=== PATIENT | female | born 1935 | race Caucasian/White ===

== ENCOUNTER 2016-09-17 13:38 | Emergency (ER) | payer MEDICARE ==
[2014-10-07 07:34] VITALS: BMI 44.6
[~2016-09-17 13:38] MED LIST: ELAVIL25 MG PO; HYDROCODONE-APA1 TAB PO; LISINOPRIL10 MG PO
[2016-09-17 15:07] LABS: BASOPHILS 0.7 % (0-2); EOSINOPHILS 3.1 % (0-7); HEMATOCRIT 47.4 % (36.0-48.0); HEMOGLOBIN 15.9 g/dL (12-16); IMMATURE GRANULOCYTES 0.2 % (0-5); MCH 30.7 pg (26.0-34.0); MCHC 33.5 g/dL (31.0-37.0); MCV 91.5 fL (80.0-100.0); MEAN PLATELET VOLUME 10.5 fL (7.4-10.4); PLATELET COUNT 231 10x3/uL (130-400); RBC 5.18 10x6/uL (4.00-5.40); RDW 13.7 % (11.5-14.5); WBC 8.4 10x3/uL (4.8-10.8)
[2016-09-17 15:33] LABS: ALBUMIN 3.3 g/dL (3.4-5.0); ANION GAP 13.1 mmol/L (8-16); BILIRUBIN - TOTAL 0.4 mg/dL (0.2-1.3); CALCIUM 8.5 mg/dL (8.5-10.1); CARBON DIOXIDE 29.7 mmol/L (21.0-32.0); CREATININE - SERUM 0.9 mg/dL (0.6-1.3); POTASSIUM - SERUM 3.8 mmol/L (3.5-5.1); PROTEIN - SERUM 6.8 g/dL (6.4-8.2)
== END 2016-09-17 17:58 | disposition home or self-care (01) ==
LOC: D.ER 13:38
PROVIDERS: Family Medicine
DX: M79.605 Pain in left leg (principal); M54.10 Radiculopathy, site unspecified; M54.30 Sciatica, unspecified side; I10 Essential (primary) hypertension

== ENCOUNTER 2018-08-04 20:11 | Inpatient (IN) | payer MEDICARE ==
[~2018-08-04] VITALS: Ht 170.2 cm; Wt 125.6 kg
--- NOTE | ~2018-08-04 | EC ---
PATIENT:FRANCISCO HEARN DATE OF SERVICE: 08/04/18 SEX: F MEDICAL RECORD: [id number] DATE OF : 33 LOCATION:D.MS [place] AGE OF PATIENT: 82 ADMISSION DATE: 08/04/18 REFERRING PHYSICIAN: INTERPRETING PHYSICIAN: AJ WANG MD ECHOCARDIOGRAM REPORT ECHO CHARGES 4 ECHO COMPLETE Date: 08/05/18 CLINICAL DIAGNOSIS: AFIB ECHOCARDIOGRAPHIC MEASUREMENTS (adult normal given) AC root (d.<3.7cm) 2.9 cm LV Septum d (<1.2 cm> 0.9 cm Valve Excursion 1.7 cm LV Septum (systole) 1.6 cm Left Atria (s.<4.0cm> 4.4 cm LVPW d(<1.2cm) 1.3 cm RV (d.<2.3cm) 1.8 cm LVPW (sytole) 1.6 cm LV diastole(<5.6CM) 5.5 cm MV E-F(>70mm/sec) cm LV systole 4.5 cm LVOT Diameter 1.7 cm MV exc.(>10mm) cm Est.ejection fraction (50-75%) % DOPPLER: LVIT cm/sec A 26 cm/sec E 96 cm/sec LA cm/sec RVSP 22.0 mmHg LVOT 123 cm/sec AOP1/2T m/s Asc. Ao 156 cm/sec RVOT 133 cm/sec RA cm/sec PA 163 cm/sec AV Gradient Peak 9.7 mmHg AV Mean 5.0 mmHg AV Area 2.0 cm MV Gradient Peak 3.8 mmHg MV Mean 2.0 mmHg MV Area cm COMMENTS: Custom Van Converter: Devendra [facility] Photography Coordinator: 1 Dr. Wang TAPE# PACS Pericardial Effusion N DATE OF SERVICE: 08/05/2018 FINDINGS: 1. Left ventricular chamber size is within normal limits. Left ventricular systolic function is normal. Overall ejection fraction 65%. 2. Left atrium is enlarged at 4.4 cm. Right atrium and right ventricular chamber sizes are as well mildly dilated. 3. Valvular structures have normal structure and motion. 4. Doppler interrogation reveals moderate aortic insufficiency, [id number] tricuspid regurgitation, no other valvular insufficiency or stenosis. Pulmonary ECHOCARDIOGRAM REPORT [id number] FRANCISCO HEARN systolic pressure is preserved at 22 mmHg. 5. No evidence of pericardial effusion or left ventricular thrombus. TRANSINT:[id number] Voice Confirmation ID: [id number] DOCUMENT ID: [id number] AJ WANG MD CC: [id number] DICTATION DATE: 08/06/18 1019 SHIP'S OFFICER: 08/06/[address] [facility] [address] [place] [id number]
--- NOTE | ~2018-08-04 | CN ---
PATIENT NAME:FRANCISCO HEARN MEDICAL RECORD: [id number] : 33 LOCATION:D.MS Toth2207 ADMIT DATE: 08/04/18 ACCOUNT: [id number] CONSULTING PHYSICIAN: AJ GARCIA MD REFERRING PHYSICIAN: TYLER JONES MD DATE OF CONSULTATION: 08/05/2018 CARDIOLOGY CONSULTATION DATE OF SERVICE: 08/05/2018 DIAGNOSES: 1. Preoperative evaluation of hip surgery. 2. Coumadin anticoagulation, chronic. 3. Atrial fibrillation, chronic. 4. Hypertension. 5. Coronary artery disease. HISTORY OF PRESENT ILLNESS: Mrs. Hearn is admitted with a hip fracture. She has chronic atrial fibrillation for which she is on Coumadin anticoagulation. Her INR this morning is 1.78. Her Coumadin is on hold for possible operation. She is asymptomatic from the atrial fibrillation. She is not on any AV blocking medications. Her heart rate is in the 70s-80s with no AV blocking medication. She does have hypertension for which she is on lisinopril. She had a cardiac catheterization in 2011 showing minimal coronary disease. She is asymptomatic from the standpoint of ischemic heart disease with no symptomatology. PHYSICAL EXAMINATION: GENERAL APPEARANCE: Well-nourished, well-developed, appears stated age. Level of distress, comfortable. PSYCHIATRIC: Mental status, alert, normal affect. Orientation, oriented to time, place and person. EYES: Lids and conjunctiva, noninjected. No discharge, no pallor. ENT: Lips, teeth, gums, normal dentition. Oropharynx, no cyanosis, no pallor. NECK: Carotid arteries, bilateral normal upstroke, no bruits, no thrills. JUGULAR VEINS: No jugular venous pressure or distention. CERVICAL LYMPH NODES: Nontender, nonenlarged. THYROID: Not enlarged. Nontender. No nodules. LUNGS: Respiratory effort, unlabored. CHEST: Normal curvature. No thoracic deformity. No chest wall tenderness. Percussion, resonant. Auscultation, clear. No wheezes, no rales, no rhonchi. CARDIOVASCULAR: Precordial exam, nondisplaced. No heaves or pericardial thrills. Rate and rhythm, regular. Heart sounds, normal S1, normal S2. No S3, no gallop, no rub. Systolic murmur, not heard. Diastolic murmur, not heard. EXTREMITIES: No cyanosis, no edema. Peripheral pulses, full and equal in all extremities, except as noted. No bruits appreciated. ABDOMEN: Soft, nondistended. Normal aorta. No bruit. Nontender. No masses. Liver, nontender, no hepatomegaly. Spleen, nontender, no splenomegaly. MUSCULOSKELETAL: No joint tenderness. No joint swelling. No erythema. NEUROLOGICAL: Normal gait, normal strength, normal tone. SKIN: Warm and dry. OVERALL IMPRESSION: Atrial fibrillation, chronic. At this time, hold the Coumadin, proceed with the operation at low cardiac risk restarting the Coumadin as soon as possible from a bleeding standpoint after the operative repair. At CONSULT REPORT [id number] FRANCISCO HEARN this time, no other cardiac workup treatment is necessary. TRANSINT:[id number] Voice Confirmation ID: [id number] DOCUMENT ID: [id number] AJ GARCIA MD CC: [id number] DICTATION DATE: 08/05/18 1046 PURCHASE ANALYST: 08/05/[address] [facility] [address] [place] [address]
[2018-08-04] MEDS ORDERED: COUMADIN2.5 MG PO (20:17)
[2018-08-04 20:55] LABS: BASOPHILS 0.1 % (0-2); EOSINOPHILS 0 % (0-7); HEMATOCRIT 44.1 % (36.0-48.0); IMMATURE GRANULOCYTES 0.4 % (0-5); LYMPHOCYTES 3.4 % (15-50); MCH 29.8 pg (26.0-34.0); MCV 87.5 fL (80.0-100.0); MEAN PLATELET VOLUME 10.3 fL (7.4-10.4); MONOCYTES 5.5 % (2-11); NEUTROPHILS 90.6 % (40-80); RBC 5.04 10x6/uL (4.00-5.40); RDW 14.1 % (11.5-14.5); WBC 14.7 10x3/uL (4.8-10.8)
[2018-08-04 21:00] LABS: PLATELET COUNT 175 10x3/uL (130-400)
[2018-08-04 21:09] LABS: APTT 31.7 SECONDS (22.8-39.4); INR 1.79 (0.85-1.17); PROTIME 20.1 SECONDS (11.6-15.0)
[2018-08-04 21:24] LABS: BILIRUBIN - TOTAL 0.59 mg/dL (0.2-1.3); CALCIUM 8.1 mg/dL (8.5-10.1); CARBON DIOXIDE 27.4 mmol/L (21.0-32.0); CREATININE - SERUM 1.1 mg/dL (0.6-1.3); POTASSIUM - SERUM 4.4 mmol/L (3.5-5.1); PROTEIN - SERUM 6.5 g/dL (6.4-8.2); THYROID STIMULATING HORMONE 1.66 uIU/mL (0.36-3.74); TROPONIN-I 0.023 ng/mL (0.000-0.060)
[2018-08-04 22:57] VITALS: BMI 43.5
[2018-08-05 00:51] LABS: APPEARANCE CLEAR (CLEAR); BILIRUBIN NEGATIVE (NEGATIVE); COLOR DK YELLOW (YELLOW); GLUCOSE NEGATIVE (NEGATIVE); KETONE SMALL mg/dL (NEGATIVE); NITRITE NEGATIVE (NEGATIVE); PROTEIN NEGATIVE (NEGATIVE); SPECIFIC GRAVITY 1.025 (1.005-1.020); UROBILINOGEN NORMAL (NORMAL)
[2018-08-05 01:28] VITALS: BP 110/44
[2018-08-05 05:34] VITALS: BP 156/76
[2018-08-05 09:00] LABS: HEMATOCRIT 39.9 % (36.0-48.0); HEMOGLOBIN 13.4 g/dL (12-16); MCH 29.5 pg (26.0-34.0); MCHC 33.6 g/dL (31.0-37.0); MCV 87.7 fL (80.0-100.0); RBC 4.55 10x6/uL (4.00-5.40); RDW 14.5 % (11.5-14.5)
[2018-08-05 09:04] LABS: WBC 8.9 10x3/uL (4.8-10.8)
[2018-08-05 09:08] LABS: ANION GAP 14.7 mmol/L (8-16); CALCIUM 7.9 mg/dL (8.5-10.1); CARBON DIOXIDE 24.8 mmol/L (21.0-32.0); POTASSIUM - SERUM 4.5 mmol/L (3.5-5.1)
[2018-08-05 09:09] LABS: CREATININE - SERUM 0.8 mg/dL (0.6-1.3)
[2018-08-05 09:10] VITALS: BP 129/49
[2018-08-05 09:13] LABS: INR 1.78 (0.85-1.17); PROTIME 20.7 SECONDS (11.6-15.0)
[2018-08-05 13:00] VITALS: Ht 170.2 cm; Wt 125.6 kg
[2018-08-05 13:04] VITALS: BP 157/56
[2018-08-05 16:44] VITALS: BP 130/64
[2018-08-05 20:57] VITALS: BP 167/62
[2018-08-06 01:42] VITALS: BP 125/64
[2018-08-06 04:57] LABS: BASOPHILS 0.3 % (0-2); EOSINOPHILS 0.1 % (0-7); HEMATOCRIT 37.3 % (36.0-48.0); HEMOGLOBIN 12.5 g/dL (12-16); IMMATURE GRANULOCYTES 0.2 % (0-5); LYMPHOCYTES 11.2 % (15-50); MCH 29.3 pg (26.0-34.0); MCHC 33.5 g/dL (31.0-37.0); MCV 87.4 fL (80.0-100.0); MONOCYTES 11.4 % (2-11); NEUTROPHILS 76.8 % (40-80); PLATELET COUNT 235 10x3/uL (130-400); RBC 4.27 10x6/uL (4.00-5.40); RDW 14.6 % (11.5-14.5); WBC 9.6 10x3/uL (4.8-10.8)
[2018-08-06 05:08] LABS: INR 1.92 (0.85-1.17); PROTIME 21.3 SECONDS (11.6-15.0)
[2018-08-06 05:11] LABS: ANION GAP 12.8 mmol/L (8-16); CARBON DIOXIDE 25.1 mmol/L (21.0-32.0); POTASSIUM - SERUM 3.9 mmol/L (3.5-5.1)
[2018-08-06 05:24] VITALS: BP 153/63
[2018-08-06 08:56] VITALS: BP 135/61
--- NOTE | 2018-08-06 11:50 | MORECARE ---
CASE MANAGEMENT DISCHARGE SUMMARY PATIENT: FRANCISCO HEARN UNIT: [id number] ADM DATE: 08/04/18 AGE: 82 : 34 SEX: F ROOM/BED: D.2207 AUTHOR: LUIS ANDERSON PHYSICIAN: REFERRING PHYSICIAN: TYLER JONES MD DATE OF SERVICE: 08/06/18 Discharge Plan Patient Name: FRANCISCO HEARN [facility] [facility] 1935 Planned Disposition: Alf Facility Anticipated Discharge Date: Discharge Date: Expected LOS: Initial Reviewer: [email or web address] Initial Review Date: 08/04/2018 Generated: 08/06/18 12:50 pm Patient Name: FRANCISCO HEARN Page 52828 at 1150 All edits/amendments must be made on the electronic document DICTATION DATE: 08/06/18 1150 NURSERY TECHNICIAN: MICA 08/06/18 1150 RPT#: [id number] ME DATE: STATUS: ADM IN [facility] [address] [place] [address] END OF REPORT
--- NOTE | 2018-08-06 12:00 | MORECARE ---
CASE MANAGEMENT DISCHARGE SUMMARY PATIENT: FRANCISCO HEARN UNIT: [id number] ADM DATE: 08/04/18 AGE: 82 : 34 SEX: F ROOM/BED: D.2207 AUTHOR: LUIS ANDERSON PHYSICIAN: REFERRING PHYSICIAN: TYLER JONES MD DATE OF SERVICE: 08/06/18 Discharge Plan Patient Name: FRANCISCO HEARN [facility] : 1935 Planned Disposition: Residential Facility Anticipated Discharge Date: Discharge Date: Expected LOS: Initial Reviewer: [email or web address] Initial Review Date: 08/04/2018 Generated: 08/06/18 12:59 pm DCPIA - Discharge Planning Initial Assessment Updated by [email or web address]: Maricruz Peña on 08/06/18 11:52 am * Is the patient Alert and Oriented? Yes * How many steps to enter\exit or inside your home? * PCP TAQUERIA/RADHA * [facility] * Preadmission Environment Home Alone * ADLs Independent * Equipment Bedside Commode Rolling Walker Shower Chair Walker Wheelchair * List name and contact numbers for known caregivers / representatives who currently or will assist patient after discharge: YVON (DAUGHTER IN LAW) [phone] * Verbal permission to speak to the caregivers and representatives has been obtained from the patient. Yes * Community resources currently utilized None * Additional services required to return to the preadmission environment? Yes * Can the patient safely return to the preadmission environment? No * Has this patient been hospitalized within the prior 30 days at any hospital? No Last DP export: 08/06/18 10:50 a Patient Name: FRANCISCO HEARN Page 39609 at 1200 All edits/amendments must be made on the electronic document DICTATION DATE: 08/06/18 1159 CAN STERILIZER: MICA 08/06/18 1159 RPT#: [id number] DC DATE: STATUS: ADM IN [facility] [address] [place] [address] END OF REPORT
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
[2018-08-06 17:25] VITALS: BP 173/61
[2018-08-06 20:00] VITALS: BP 151/59
[2018-08-07] VITALS (13 sets, daily range): BP systolic 129–178; BP diastolic 49–81
[2018-08-07 05:04] LABS: BASOPHILS 0.6 % (0-2); EOSINOPHILS 1.2 % (0-7); HEMATOCRIT 35.8 % (36.0-48.0); HEMOGLOBIN 11.9 g/dL (12-16); IMMATURE GRANULOCYTES 0.4 % (0-5); LYMPHOCYTES 11.4 % (15-50); MCH 29.2 pg (26.0-34.0); MCHC 33.2 g/dL (31.0-37.0); MCV 87.7 fL (80.0-100.0); MEAN PLATELET VOLUME 9.6 fL (7.4-10.4); MONOCYTES 7.8 % (2-11); NEUTROPHILS 78.6 % (40-80); PLATELET COUNT 207 10x3/uL (130-400); RBC 4.08 10x6/uL (4.00-5.40); RDW 14.4 % (11.5-14.5); WBC 8.1 10x3/uL (4.8-10.8)
[2018-08-07 05:20] LABS: INR 1.85 (0.85-1.17); PROTIME 20.7 SECONDS (11.6-15.0)
[2018-08-07 05:30] LABS: ANION GAP 10.4 mmol/L (8-16); CALCIUM 7.9 mg/dL (8.5-10.1); CARBON DIOXIDE 27.5 mmol/L (21.0-32.0); CREATININE - SERUM 0.8 mg/dL (0.6-1.3); POTASSIUM - SERUM 3.9 mmol/L (3.5-5.1)
[2018-08-07 22:52] LABS: INR 1.58 (0.85-1.17); PROTIME 18.2 SECONDS (11.6-15.0)
[2018-08-08] VITALS (8 sets, daily range): BP systolic 125–171; BP diastolic 41–79
[2018-08-08 06:35] LABS: BASOPHILS 0.2 % (0-2); EOSINOPHILS 0.3 % (0-7); HEMATOCRIT 35.5 % (36.0-48.0); HEMOGLOBIN 11.6 g/dL (12-16); IMMATURE GRANULOCYTES 0.3 % (0-5); MCHC 32.7 g/dL (31.0-37.0); MCV 88.8 fL (80.0-100.0); MEAN PLATELET VOLUME 10.1 fL (7.4-10.4); MONOCYTES 9.8 % (2-11); NEUTROPHILS 81.4 % (40-80); RDW 14.5 % (11.5-14.5); WBC 8.7 10x3/uL (4.8-10.8)
[2018-08-08 06:42] LABS: PLATELET COUNT 252 10x3/uL (130-400)
[2018-08-08 06:45] LABS: INR 1.5 (0.85-1.17); PROTIME 17.6 SECONDS (11.6-15.0)
[2018-08-08 06:51] LABS: ANION GAP 12.9 mmol/L (8-16); CALCIUM 7.4 mg/dL (8.5-10.1); CARBON DIOXIDE 26.2 mmol/L (21.0-32.0); CREATININE - SERUM 0.8 mg/dL (0.6-1.3); POTASSIUM - SERUM 4.1 mmol/L (3.5-5.1)
[2018-08-09] VITALS: BP 156/68
[2018-08-09 04:00] VITALS: BP 137/56
[2018-08-09 07:16] LABS: BASOPHILS 0.4 % (0-2); EOSINOPHILS 2.7 % (0-7); HEMATOCRIT 34.5 % (36.0-48.0); HEMOGLOBIN 11.5 g/dL (12-16); IMMATURE GRANULOCYTES 0.6 % (0-5); LYMPHOCYTES 11.9 % (15-50); MCH 29.4 pg (26.0-34.0); MCHC 33.3 g/dL (31.0-37.0); MCV 88.2 fL (80.0-100.0); MEAN PLATELET VOLUME 9.9 fL (7.4-10.4); MONOCYTES 13.8 % (2-11); NEUTROPHILS 70.6 % (40-80); PLATELET COUNT 251 10x3/uL (130-400); RBC 3.91 10x6/uL (4.00-5.40); RDW 14.6 % (11.5-14.5); WBC 8.1 10x3/uL (4.8-10.8)
[2018-08-09 07:36] LABS: CALC OSMOLALITY 278 mosm/kg (275-300); CALCIUM 7.9 mg/dL (8.5-10.1); CARBON DIOXIDE 26.2 mmol/L (21.0-32.0); CHLORIDE - SERUM 102 mmol/L (98-107); CREATININE - SERUM 0.7 mg/dL (0.6-1.3); GLUCOSE 112 mg/dL (74-106); POTASSIUM - SERUM 4.2 mmol/L (3.5-5.1); SODIUM 138 mmol/L (136-145); UREA NITROGEN 17 mg/dL (7-18); eGFR NON AFRICAN AMERICAN 84 mL/min (90-120)
[2018-08-09 08:35] VITALS: BP 141/75
--- NOTE | 2018-08-09 09:41 | OP ---
PATIENT NAME: FRANCISCO HEARN MEDICAL RECORD: [id number] :33 LOCATION:D.MS Toth2207 ADMISSION DATE:08/04/18 SURGEON: RERE DOWNS MD DATE OF OPERATION: 08/07/2018 PREOPERATIVE DIAGNOSES: 1. Subtrochanteric right hip fracture. 2. Morbid obesity. POSTOPERATIVE DIAGNOSES: 1. Subtrochanteric right hip fracture. 2. Morbid obesity. PROCEDURE: Cephalomedullary fixation of right subtrochanteric hip fracture. SURGEON: Rere Downs MD MOLD LOFT WORKER: Bruna Norman. ANESTHESIA: General. INTRAOPERATIVE COMPLICATIONS: Essentially none. SUMMARY OF PATHOLOGIC FINDINGS: The patient had a fracture that was in the subtrochanteric region. Given the patient's weight, this made fixation extremely difficult; however, excellent anatomic muslim of the proximal subtrochanteric femur fracture was achieved using gamma nail system. OPERATIVE SUMMARY IN DETAIL: After obtaining the appropriate preoperative orthopedic surgery consent as well as anesthetic consultation, evaluation and clearance, the patient was brought to the operating room and anesthetized on her hospital bed. She was then transferred to the fracture table. She was firmly secured to the fracture table, given her weight of near 300 pounds. This required substantial amount of positioning and preparation. Right leg was placed in the traction boot, left leg was placed in the well leg ngo. Having completed this, fluoroscopy was brought in and manipulation was performed for anatomic muslim, both in rotation as well as alignment. This did require substantial amount of abduction, putting the greater trochanter farther medially. Hip was then prepped and draped in routine sterile fashion. Incision was made superior to greater trochanter. The awl was then utilized to create a starting point, and with some degree of trepidation the guidewire was passed through the greater trochanter, into the subtrochanteric fracture and down the femur, both on AP and lateral planes. Proximal reaming was then followed by insertion of a long gamma nail, which was a size 11 x 300 mm with a 125 degree angulation. The gamma nail was placed with a combination of abduction and adduction of the lower extremity to the appropriate position. Guide pin was then put into place and seemed to be in the center-center low position on AP and lateral views from fluoroscopy. Reaming was carried out followed by placement of the 10.5 x 110-mm compression screw. Derotational screw was deployed to the appropriate place to allow for compression, but not rotation. Compression was then applied across the fracture. Lastly, attention was turned to the distal interlocking screw. Distal interlocking screw was aligned on fluoroscopic visualization and then the distal interlocking screw for a size 40 was placed resulting in good overall stabilization. AP and lateral views of both proximal and distal aspect of the fracture were taken and submitted for radiologist for OPERATIVE REPORT [id number] FRANCISCO HEARN final review. Wounds were irrigated and closed done by Bruna Norman, to include #1 Vicryl, 2-0 Vicryl and skin vanita. Sterile dressings were applied. The patient was awakened, taken to the recovery room in stable condition. All final needle and sponge counts were correct. TRANSINT:[id number] Voice Confirmation ID: [id number] DOCUMENT ID: [id number] YARELI GRAY, RERE JAIMES at 0941 CC: [id number] DICTATION DATE: 08/08/18617 PARIMUTUEL CASHIER: 08/08/18 1210 ADM IN [place] [id number] [place] [id number]
[2018-08-09 12:48] VITALS: BP 190/64
[2018-08-09 16:47] VITALS: BP 113/66
[2018-08-09 20:00] VITALS: BP 148/55
[2018-08-10] VITALS: BP 159/66
[2018-08-10 04:00] VITALS: BP 154/61
[2018-08-10 07:26] LABS: CALC OSMOLALITY 274 mosm/kg (275-300); CALCIUM 7.7 mg/dL (8.5-10.1); CARBON DIOXIDE 26.5 mmol/L (21.0-32.0); CHLORIDE - SERUM 101 mmol/L (98-107); CREATININE - SERUM 0.7 mg/dL (0.6-1.3); GLUCOSE 103 mg/dL (74-106); POTASSIUM - SERUM 4.4 mmol/L (3.5-5.1); SODIUM 137 mmol/L (136-145); UREA NITROGEN 15 mg/dL (7-18); eGFR NON AFRICAN AMERICAN 84 mL/min (90-120)
[2018-08-10 07:27] LABS: BASOPHILS 0.2 % (0-2); EOSINOPHILS 4.1 % (0-7); HEMATOCRIT 33.4 % (36.0-48.0); HEMOGLOBIN 11.2 g/dL (12-16); IMMATURE GRANULOCYTES 0.4 % (0-5); LYMPHOCYTES 15.2 % (15-50); MCH 29.5 pg (26.0-34.0); MCHC 33.5 g/dL (31.0-37.0); MCV 87.9 fL (80.0-100.0); MONOCYTES 12.7 % (2-11); NEUTROPHILS 67.4 % (40-80); PLATELET COUNT 250 10x3/uL (130-400); RDW 14.6 % (11.5-14.5)
[2018-08-10 09:05] VITALS: BP 143/64
[2018-08-10 13:10] VITALS: BP 115/47
[2018-08-10] MEDS ORDERED: ELIQUIS2.5 MG PO (16:25)
[2018-08-10] MEDS ORDERED: COLACE100 MG PO (16:26)
[2018-08-10] MEDS ORDERED: MIRALAX17 GM PO (16:26)
[2018-08-10] MEDS ORDERED: PROTONIX40 MG PO (16:26)
[2018-08-10] MEDS ORDERED: NORCO-10 PO (16:26)
[2018-08-10] MEDS ORDERED: CYCLOBENZAPRINE10 MG PO (16:27)
[2018-08-10 16:34] VITALS: BP 126/45
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
== END 2018-08-10 18:20 | DRG 480 ==
LOC: D.ER 20:11 → D.MS 20:53
PROVIDERS: Family Medicine; Orthopaedic Surgery; ADMIT Internal Medicine Nephrology; ATTEND Internal Medicine Nephrology
PROC: 0QH604Z Insertion of Internal Fixation Device into Right Upper Femur, Open Approach (ICD-10-PCS; principal; 2018-08-07 16:00)
DX: S72.001A Fracture of unspecified part of neck of right femur, initial encounter for closed fracture (principal); G92 Toxic encephalopathy; F17.213 Nicotine dependence, cigarettes, with withdrawal; I10 Essential (primary) hypertension; I48.91 Unspecified atrial fibrillation

== ENCOUNTER 2018-08-10 17:47 | Inpatient (IN) | payer MEDICARE ==
[~2018-08-10] VITALS: Ht 170.2 cm; Wt 125.6 kg
[~2018-08-10 17:47] MED LIST changes: +COLACE100 MG PO; +COUMADIN2.5 MG PO; +CYCLOBENZAPRINE10 MG PO; +ELIQUIS2.5 MG PO; +MIRALAX17 GM PO; +NORCO-10 PO; +PROTONIX40 MG PO
[2018-08-10 18:12] VITALS: BP 139/51; BMI 43.5
--- NOTE | 2018-08-10 21:18 | NUR ---
PATIENT ASLEEP WHEN SHIFT STARTED. AWAKENED FOR VITAL SIGNS AND INTRODUCED MYSELF. PATIENT ALERT BUT DISORIENTED TO TIME. 21:00 MEDICATION NOT IN PIXIS. STUDENT AMBASSADOR CALLED AND WILL COME AND GET MEDICATIONS WHEN SHE IS ABLE. PATIENT HAD NO COMPALINTS. WILL CONTINUE TO MONITOR. CALL LIGHT WITHIN REACH.
[2018-08-10 21:40] VITALS: BP 151/52
--- NOTE | 2018-08-10 22:39 | NUR ---
UA COLLECTED AND TAKEN TO LAB.
[2018-08-10 22:56] LABS: APPEARANCE HAZY (CLEAR); BILIRUBIN NEGATIVE (NEGATIVE); COLOR DK YELLOW (YELLOW); GLUCOSE NEGATIVE (NEGATIVE); KETONE NEGATIVE (NEGATIVE); NITRITE NEGATIVE (NEGATIVE); PROTEIN NEGATIVE (NEGATIVE)
[2018-08-10 22:57] LABS: BACTERIA MODERATE /hpf (NONE SEEN); EPITHELIAL CELLS OCC /hpf (0-5)
[2018-08-11 08:00] VITALS: BP 155/41
--- NOTE | 2018-08-11 08:00 | NUR ---
PT AM MEDS ADMINISTERED. PT DENIES NEEDS. WCTM.
[2018-08-11 08:23] LABS: BASOPHILS 0.2 % (0-2); EOSINOPHILS 2.9 % (0-7); HEMATOCRIT 32.3 % (36.0-48.0); HEMOGLOBIN 10.9 g/dL (12-16); IMMATURE GRANULOCYTES 0.7 % (0-5); LYMPHOCYTES 11.7 % (15-50); MCH 29.4 pg (26.0-34.0); MCHC 33.7 g/dL (31.0-37.0); MCV 87.1 fL (80.0-100.0); MEAN PLATELET VOLUME 9.4 fL (7.4-10.4); MONOCYTES 9.5 % (2-11); PLATELET COUNT 254 10x3/uL (130-400); RBC 3.71 10x6/uL (4.00-5.40); RDW 14.6 % (11.5-14.5); WBC 8.7 10x3/uL (4.8-10.8)
[2018-08-11 08:26] LABS: CALC OSMOLALITY 270 mosm/kg (275-300); CALCIUM 7.8 mg/dL (8.5-10.1); CARBON DIOXIDE 28.5 mmol/L (21.0-32.0); CHLORIDE - SERUM 100 mmol/L (98-107); CREATININE - SERUM 0.7 mg/dL (0.6-1.3); GLUCOSE 138 mg/dL (74-106); POTASSIUM - SERUM 4.4 mmol/L (3.5-5.1); SODIUM 134 mmol/L (136-145); UREA NITROGEN 14 mg/dL (7-18); eGFR NON AFRICAN AMERICAN 84 mL/min (90-120)
[2018-08-11 19:00] VITALS: BP 125/55
--- NOTE | 2018-08-11 20:07 | NUR ---
RESTING IN BED WITH EYES CLOSED AND RESPIRATIONS UNLABORED. DRESSING TO RIGHT HIP INTACT. NO ACUTE DISTRESS NOTED. CALL LIGHT IN REACH.
--- NOTE | 2018-08-12 02:12 | NUR ---
RESTING IN BED WITH EYES CLOSED AND RESPIRATIONS UNLABORED. NO DISTRESS NOTED. CALL LIGHT IN REACH.
--- NOTE | 2018-08-12 05:25 | NUR ---
QUIET HOURS. RESTING IN BED. NO ACUTE CHANGES IN CONDITION THIS SHIFT. NO DISTRESS NOTED.
--- NOTE | 2018-08-12 07:19 | NUR ---
RESTING, NO DISTRESS NOTED. RESP EVEN AND UNLABORED. CL IN REACH.
[2018-08-12 08:00] VITALS: BP 133/42
[2018-08-12 12:19] VITALS: Ht 170.2 cm; Wt 125.6 kg
--- NOTE | 2018-08-12 13:35 | NUR ---
PATIENT ADMITTED TO REHAB FROM ACUTE FLOOR. DR. MENG IS HER PCP AND SHE ALSO SEES DR. GARCIA. DME AT HOME IS A WALKER, WHEELCHAIR, SHOWER CHAIR AND BEDSIDE COMMODE. DISCHARGE PLANS ARE FOR HER TO RETURN HOME. WILL CONTINUE TO FOLLOW WITH PATIENT.
--- NOTE | 2018-08-12 13:46 | NUR ---
PARTICIPATING IN THERAPY. NO DISTRESS NOTED.
--- NOTE | 2018-08-12 16:25 | NUR ---
RESTING WITH EYES CLOSED. RESP EVEN AND UNLABORED. NO CHANGE IN ASSESSMENT. CL IN REACH.
[2018-08-12 19:00] VITALS: BP 145/60
--- NOTE | 2018-08-12 19:57 | NUR ---
PATIENT RECEIVED SITTING UP IN BED WATCHING TV. ASSESSMENT & VITAL SIGNS DONE. PATIENT UPPER INCISIONS STAPLED & KRISTEN. BOTTOM INCISION DRESSING HAD SEROSANGUANOUS DRAINAGE. DRESSING CHANGED. PATIENT HAD NO C/O PAIN OR DISTRESS. BED LOW. CALL IGHT WITHIN REACH. WILL COTNINUE TO MONITOR.
--- NOTE | 2018-08-13 01:18 | NUR ---
PATIENT EYES CLOSED. RESPIRATIONS 18 & EVEN. BED LOW. VARMA PATENT. YELLOW URINE. ALARM ON. CALL LIGHT WITHIN REACH. WILL CONTINUE TO MONITOR.
--- NOTE | 2018-08-13 02:28 | NUR ---
RESTING IN BED WITH EYES CLOSED AND RESPIRAITONS UNLABORED. NO DISTRESS NOTED. BLADDER TRAINING IN PROGRESS. CALL LIGHT IN REACH.
--- NOTE | 2018-08-13 03:54 | NUR ---
PATIENT EYES CLOSED. RESPIRATIONS 18 & EVEN. ALARM ON. BED LOW. CALL LIGHT WITHIN REACH. WILL CONTINUE TO MONITOR.
--- NOTE | 2018-08-13 07:15 | NUR ---
RESTING WO DISTRESS. RESP EVEN AND UNLABORED. NO C/O PAIN. CL IN REACH.
[2018-08-13 08:00] VITALS: BP 129/69
[2018-08-13 08:04] LABS: BASOPHILS 0.3 % (0-2); EOSINOPHILS 3.7 % (0-7); HEMATOCRIT 32.9 % (36.0-48.0); HEMOGLOBIN 10.9 g/dL (12-16); IMMATURE GRANULOCYTES 0.8 % (0-5); LYMPHOCYTES 15.1 % (15-50); MCH 28.9 pg (26.0-34.0); MCHC 33.1 g/dL (31.0-37.0); MCV 87.3 fL (80.0-100.0); MEAN PLATELET VOLUME 9.5 fL (7.4-10.4); MONOCYTES 10.4 % (2-11); NEUTROPHILS 69.7 % (40-80); PLATELET COUNT 289 10x3/uL (130-400); RBC 3.77 10x6/uL (4.00-5.40); RDW 15.2 % (11.5-14.5); WBC 7.8 10x3/uL (4.8-10.8)
[2018-08-13 08:12] LABS: CALC OSMOLALITY 270 mosm/kg (275-300); CALCIUM 8.2 mg/dL (8.5-10.1); CARBON DIOXIDE 27.2 mmol/L (21.0-32.0); CHLORIDE - SERUM 100 mmol/L (98-107); CREATININE - SERUM 0.7 mg/dL (0.6-1.3); GLUCOSE 113 mg/dL (74-106); POTASSIUM - SERUM 4.4 mmol/L (3.5-5.1); SODIUM 135 mmol/L (136-145); UREA NITROGEN 13 mg/dL (7-18); eGFR NON AFRICAN AMERICAN 84 mL/min (90-120)
--- NOTE | 2018-08-13 10:34 | NUR ---
PARTICIPATED IN THERAPY THIS AM. SITTING UP IN CHAIR IN ROOM AT THIS TIME. NO C/O PAIN AT THIS TIME. CL IN REACH.
--- NOTE | 2018-08-13 13:46 | NUR ---
Nutrition follow up Pt continues with poor po intake. Will add proteinex 40mL BID to help pt meet protein needs while in rehab. This will provide an additional 40gm protein daily RD following
--- NOTE | 2018-08-13 15:41 | NUR ---
SHOWER GIVEN AT THIS TIME PER NURSING.
--- NOTE | 2018-08-13 16:22 | NUR ---
NO CHANGE IN ASSESSMENT. REPOSITIONED UP IN BED. RESP EVEN AND UNLABORED. CL IN REACH.
[2018-08-13 19:00] VITALS: BP 116/53
--- NOTE | 2018-08-13 19:45 | NUR ---
PATIENT RECEIVED SITTING UP IN BED. ASSESSMENT & VITAL SIGNS DONE. PATIENT HAD NO C/O PAIN OLR DISTRESS. VARMA CATHETER CLAMPED OFF PER ORDER. BED LOW. CALL LIGHT & TABLE WITHIN REACH. WILL CONTINUE TO MONITOR.
--- NOTE | 2018-08-14 00:04 | NUR ---
PATIENT AWAKE, PLEASANTLY CONFUSED TO TIME, SITUATION. VARMA CATHETER CLAMPED & RELEASED PER ORDER. BED LOW. ALARM ON. CALL LIGHT WITHIN REACH. WILL CONTINUE TO MONITOR.
--- NOTE | 2018-08-14 03:05 | NUR ---
RESTING IN BED WITH EYES CLOSED AND RESPIRATIONS UNLABORED. BLADDER TRAINING IN PROGRESS. NO DISTRESS NOTED. CALL LIGHT IN REACH.
[2018-08-14 08:00] VITALS: BP 130/39
--- NOTE | 2018-08-14 08:36 | NUR ---
PT RESTING IN BED WITH EYES OPEN CALL LIGHT IN REACH NO PROBLEMS WILL MONITER
--- NOTE | 2018-08-14 18:37 | NUR ---
I have reviewed this patient and I concur with the Shift Assessment completed by the Licensed Practical Nurse today this shift.
[2018-08-14 19:30] VITALS: BP 113/47
--- NOTE | 2018-08-14 20:05 | NUR ---
GREETED PATIENT AND INTRODUCED MYSELF. PATIENT IS LAYING IN BED IN SUPINE POSITION. STATES PAIN 5/10 ON 0-10 PAIN SCALE. WILL ADMINISTER PRN NORCO. CALL LIGHT IN REACH.
--- NOTE | 2018-08-15 02:08 | NUR ---
ASSISTED PATIENT ONTO BEDPAN. CHANGED WET PADDING UNDER PATIENT AND REPOSITIONED FOR COMFORT. CALL LIGHT IN REACH.
--- NOTE | 2018-08-15 02:38 | NUR ---
PATIENT RESTING QUIETLY WITH EYES CLOSED. RESPIRATIONS EVEN. NO S/S OF DISTRESS. SR UP X 2. BED IN LOWEST POSITION. CALL LIGHT IN REACH.
--- NOTE | 2018-08-15 04:51 | NUR ---
PATIENT CLEANED OF INCONTINENT URINE. COMPLETE LINEN CHANGE. PATIENT REPOSITIONED FOR COMFORT. CALL LIGHT IN REACH.
[2018-08-15 07:22] LABS: HEMOGLOBIN 11.3 g/dL (12-16); MCH 29.5 pg (26.0-34.0); MCHC 33.2 g/dL (31.0-37.0); MCV 88.8 fL (80.0-100.0); MEAN PLATELET VOLUME 10.3 fL (7.4-10.4); PLATELET COUNT 275 10x3/uL (130-400); RBC 3.83 10x6/uL (4.00-5.40); RDW 15.8 % (11.5-14.5); WBC 6.6 10x3/uL (4.8-10.8)
[2018-08-15 07:44] LABS: ANION GAP 10.7 mmol/L (8-16); CALCIUM 7.9 mg/dL (8.5-10.1); CARBON DIOXIDE 29.8 mmol/L (21.0-32.0); CREATININE - SERUM 0.8 mg/dL (0.6-1.3); POTASSIUM - SERUM 4.5 mmol/L (3.5-5.1)
--- NOTE | 2018-08-15 08:00 | NUR ---
PATIENT SITTING UP IN BED TO EAT BREAKFAST. VOICES NO NEEDS. CALL LIGHT WITHIN REACH. WILL CONTINUE WITH PLAN OF CARE
[2018-08-15 08:09] VITALS: BP 130/41
[2018-08-15 09:55] LABS: EOSINOPHILS 2 % (0-7); LYMPHOCYTES 17 % (15-50); MONOCYTES 14 % (2-11); NEUTROPHILS 63 % (40-80); PLATELET ESTIMATE NORMAL; ROULEAUX OCC
--- NOTE | 2018-08-15 10:30 | NUR ---
PATIENT IS ALERT WITH SOME CONFUSION/FORGETFULLNESS NOTED. USING CALL LIGHT FOR USE OF BEDPAN. PATIENT ABLE TO ROLL TO RIGHT SIDE WITH MOD AMOUNT OF HELP. PRN PAIN MEDICATION GIVEN FOR RIGHT HIP PAIN.
--- NOTE | 2018-08-15 14:00 | NUR ---
PATIENT HELPED IN BATHROOM BY PHYSICAL THERAPIST. MAX ASST OF TWO FROM WHEELCHAIR ONTO TOILET
--- NOTE | 2018-08-15 14:27 | NUR ---
DUCOLAX SUPP GIVEN FOR NO BOWEL MOVEMENT SINCE 08/10/18. PRN PAIN MEDCIATION GIVEN PER PATIENT REQUEST FOR RIGHT HIP PAIN
--- NOTE | 2018-08-15 16:37 | NUR ---
NURSE ASST IN PATIENTS ROOM. GIVING PATIENT A BED BATH
--- NOTE | 2018-08-15 17:23 | NUR ---
PATIENT HAD RESULTS ON DUCOLAX SUPP. PATIENT HAD A LARGE INCONT BOWEL MOVEMENT
--- NOTE | 2018-08-15 17:34 | NUR ---
I have reviewed this patient and I concur with the Shift Assessment completed by the Licensed Practical Nurse today this shift.
[2018-08-15 19:00] VITALS: BP 132/47
--- NOTE | 2018-08-15 19:27 | NUR ---
PT RESTING QUEITLY. EYES CLOSED. NO SIGNS OF DISTRESS OR PAIN. CALL LIGHT IN REACH. BED IN LOW. SIDE RAILS X2. RESP EVEN AND UNLABORED. WILL CONTINUE TO MONITOR.
--- NOTE | 2018-08-15 23:05 | NUR ---
PT LYING IN BED. CALL LIGHT IN REACH. PT PRESSED CALL LIGHT STATED SHE NEEDED A BEDPAN. PT URINATED. PT CLEANED AND PADS CHANGED. DENIES FURTHER NEEDS OR PAIN AT THIS TIME. DRESSING TO RIGHT LOWER BOTTOM INCISION DUE TO DRAINAGE. PT HAS 3 INCISIONS. LUNGS CLEAR. BOWEL ACTIVE X4. A/O X2. WCTM
--- NOTE | 2018-08-16 02:36 | NUR ---
I have reviewed this patient and I concur with the Shift Assessment completed by the Licensed Practical Nurse today this shift.
--- NOTE | 2018-08-16 04:15 | NUR ---
PT YELLING "NURSE". WENT INTO ROOM AND PT STATED SHE NEEDED TO URINATE. BED OLEA PLACED UNDER PT AND BED LINEN CHANGED DUE TO INCONTINENCE BEFORE URINATION INTO BEDPAN. DENIES FURTHER NEEDS. WCTM CALL LIGHT IN REACH
[2018-08-16 08:00] VITALS: BP 152/83
--- NOTE | 2018-08-16 08:03 | NUR ---
PATIENT IS ALERT WITH FORGETFULLNESS NOTED. CALL LIGHT WITHIN REACH. VOICES NO NEEDS AT THIS TIME. WILL CONTINUE WITH PLAN OF CARE
--- NOTE | 2018-08-16 09:50 | NUR ---
PATIENT IS A TOTAL ASST. USING BED OLEA. INCONT OF URINE AND BOWEL AT TIMES
--- NOTE | 2018-08-16 12:42 | NUR ---
I have reviewed this patient and I concur with the Shift Assessment completed by the Licensed Practical Nurse today this shift.
--- NOTE | 2018-08-16 13:42 | NUR ---
PATIENT REMAINS IN BED. TOTAL ASST WITH CARE. USING BED OLEA.
--- NOTE | 2018-08-16 15:33 | NUR ---
DRESSING CHANGED TO RIGHT HIP. PATIENT HAS THREE SMALL INCISION SITES. LOWEST INCISION SITE DRAINING MODERATE AMOUNT OF SEROSANGUOUS DRAINAGE. CLEANED WITH WOUND SENIOR PHP WEB DEVELOPER AND NEW DRESSING APPLIED.
--- NOTE | 2018-08-16 19:36 | NUR ---
PT SITTING UP IN BED WATCHING TV. CALL LIGHT IN REACH. DENIES NEEDS OR PAIN AT THIS TIME. BED IN LOW. SIDE RAILS X2. BED ALARM ON. CONFUSED MOST TIMES BUT ALERT. RESP EVEN AND UNLABORED. WILL CONTINUE TO MONITOR.
[2018-08-16 20:53] VITALS: BP 131/50
--- NOTE | 2018-08-16 22:14 | NUR ---
PATIENT ASLEEP AT THIS TIME. WILL CONTINUE TO MONITOR.
--- NOTE | 2018-08-17 00:28 | NUR ---
PATIENT SLEEPING AT THIS TIME. WILL CONTINUE TO MONITOR.
--- NOTE | 2018-08-17 06:33 | NUR ---
PATIENT HAD INCONTIENT EPISODE. COMPLETE BED CHANGE NECESSARAY.
--- NOTE | 2018-08-17 07:52 | NUR ---
PATIENT IS ALERT WITH CONFUSION NOTED. SITTING UP IN BED TO EAT BREAKFAST. CALL LIGHT WITHIN REACH. VOICES NO NEEDS AT THIS TIME. WILL CONTINUE WITH PLAN OF CARE
[2018-08-17 08:00] VITALS: BP 140/61
--- NOTE | 2018-08-17 11:18 | NUR ---
PATIENT HAS FAMILY IN ROOM VISITING. PATIENT SITTING UP IN BED. VOICES NO NEEDS AT THIS TIME.
--- NOTE | 2018-08-17 14:29 | NUR ---
PATIENT RESTING AFTER LUNCH. PATIENT IS A TOTAL ASST. USING BED OLEA. IS ABLE TO ROLL FROM SIDE TO SIDE WITH MOD ASST. CALL LIGHT WITHIN REACH
--- NOTE | 2018-08-17 17:52 | NUR ---
I have reviewed this patient and I concur with the Shift Assessment completed by the Licensed Practical Nurse today this shift.
[2018-08-17 19:25] VITALS: BP 132/36
--- NOTE | 2018-08-17 19:25 | NUR ---
GREETED PATIENT AND INTRODUCED MYSELF. PATIENT LAYING IN BED IN SUPINE POSITION DENIES ANY NEEDS AT THIS TIME. CALL LIGHT IN REACH. VITAL SIGNS OBTAINED.
--- NOTE | 2018-08-18 00:18 | NUR ---
PATIENT CLEANED OF INCONTINENT URINE. PATIENT BED BATH COMPLETED. COMPLETE LINEN CHANGE. CALL LIGHT IN REACH.
[2018-08-18 06:46] LABS: BASOPHILS 0.5 % (0-2); HEMATOCRIT 33.2 % (36.0-48.0); HEMOGLOBIN 10.6 g/dL (12-16); IMMATURE GRANULOCYTES 0.4 % (0-5); LYMPHOCYTES 15.6 % (15-50); MCH 28.8 pg (26.0-34.0); MCHC 31.9 g/dL (31.0-37.0); MCV 90.2 fL (80.0-100.0); MEAN PLATELET VOLUME 9.3 fL (7.4-10.4); MONOCYTES 11.2 % (2-11); NEUTROPHILS 68.3 % (40-80); PLATELET COUNT 294 10x3/uL (130-400); RBC 3.68 10x6/uL (4.00-5.40); RDW 16.1 % (11.5-14.5); WBC 5.7 10x3/uL (4.8-10.8)
[2018-08-18 07:06] LABS: CALC OSMOLALITY 276 mosm/kg (275-300); CARBON DIOXIDE 30.6 mmol/L (21.0-32.0); CHLORIDE - SERUM 103 mmol/L (98-107); CREATININE - SERUM 0.7 mg/dL (0.6-1.3); GLUCOSE 107 mg/dL (74-106); POTASSIUM - SERUM 4.1 mmol/L (3.5-5.1); SODIUM 139 mmol/L (136-145); UREA NITROGEN 9 mg/dL (7-18); eGFR NON AFRICAN AMERICAN 84 mL/min (90-120)
--- NOTE | 2018-08-18 07:34 | NUR ---
RESTING WITH EYES CLOSED. NO DISTRESS NOTED. BED ALARM ON.
[2018-08-18 08:00] VITALS: BP 134/38
--- NOTE | 2018-08-18 09:36 | NUR ---
Nutrition follow up Pt is on a regular diet with 50% average po intake Proteinex ordered BID Pt reports she has a sore in mouth and it hurts to eat Will change diet to mechanical soft and add Ensure BID Instructed pt to drink Ensure only when not able to eat meal RD following
--- NOTE | 2018-08-18 12:06 | NUR ---
HAD THERAPY THIS AM. SITTING UP IN WC AT THIS TIME. NO C/O PAIN.
--- NOTE | 2018-08-18 16:51 | NUR ---
NO CHANGE IN ASSESSMENT. FAMILY AT BS. CL IN REACH.
[2018-08-18 19:00] VITALS: BP 138/53
--- NOTE | 2018-08-18 22:00 | NUR ---
PT IN BED, LOWEST POSITION, EYES OPEN, BREATH EVEN AND UNLABORED, PLEASANT, NO NEEDS NOTED, FLUIDS AND CALL LIGHT WITHIN REACH
--- NOTE | 2018-08-18 23:43 | NUR ---
PT IN BED, LOWEST POSITION, EYES CLOSED, AROUSES EASILY TO VOICE, NO IMMEDIATE NEEDS NOTED, FLUIDS AND CALL LIGHT WITHIN REACH
--- NOTE | 2018-08-19 07:17 | NUR ---
RESTING WO DISTRESS. CL IN REACH. RESP EVEN AND UNLABORED.
[2018-08-19 08:00] VITALS: BP 144/53
--- NOTE | 2018-08-19 10:19 | NUR ---
PAIN MED GIVEN BEFORE THERAPY. PARTICIPATING IN THERAPY AT THIS TIME.
--- NOTE | 2018-08-19 12:08 | NUR ---
REFERRAL HAS BEEN FAXED TO [facility] FOR POSSIBLE ADMISSION. WILL CONTINUE TO FOLLOW WITH PATIENT
--- NOTE | 2018-08-19 18:04 | NUR ---
ACCIDENTS URINE X2 ON LINENS TODAY. STAFF CLEANED UP.
[2018-08-19 20:00] VITALS: BP 119/49
--- NOTE | 2018-08-19 22:48 | NUR ---
PATIENT RECEIVED SITTING UP IN BED WATCHING TV. PATIENT ASSESSMENT & VITAL SIGNS DONE. PATIENT ABLE TO VOICE HER NEEDS & USE CALL LIGHT WITHIN REACH. ALARM ON. BED LOW. WILL CONTINUE TO MONITOR.
--- NOTE | 2018-08-20 03:38 | NUR ---
PATIENT EYES CLOSED. RESPIRATIONS 18 & EVEN. BED LOW. CALL LIGHT WITHIN REACH. ALARM ON. WILL CONTINUE TO MONITOR.
--- NOTE | 2018-08-20 07:08 | NUR ---
RESP EVEN AND UNLABAORED. ALERT AND ORIENTED. NO C/O PAIN.
[2018-08-20 07:09] LABS: BASOPHILS 0.5 % (0-2); EOSINOPHILS 3.8 % (0-7); HEMATOCRIT 36.8 % (36.0-48.0); HEMOGLOBIN 11.8 g/dL (12-16); IMMATURE GRANULOCYTES 0.3 % (0-5); LYMPHOCYTES 23.3 % (15-50); MCH 29.1 pg (26.0-34.0); MCHC 32.1 g/dL (31.0-37.0); MCV 90.6 fL (80.0-100.0); MEAN PLATELET VOLUME 9.6 fL (7.4-10.4); MONOCYTES 9.4 % (2-11); NEUTROPHILS 62.7 % (40-80); PLATELET COUNT 332 10x3/uL (130-400); RBC 4.06 10x6/uL (4.00-5.40); RDW 16.5 % (11.5-14.5); WBC 6.3 10x3/uL (4.8-10.8)
[2018-08-20 07:34] LABS: ANION GAP 10.8 mmol/L (8-16); CALCIUM 8.4 mg/dL (8.5-10.1); CARBON DIOXIDE 30.4 mmol/L (21.0-32.0); CREATININE - SERUM 0.8 mg/dL (0.6-1.3); POTASSIUM - SERUM 4.2 mmol/L (3.5-5.1)
[2018-08-20 08:10] VITALS: BP 136/41
--- NOTE | 2018-08-20 10:27 | NUR ---
ACCIDENT URINE ON LINENS.
[2018-08-20 12:03] VITALS: BP 110/59
--- NOTE | 2018-08-20 13:10 | RHP ---
PATIENT: FRANCISCO HEARN MEDICAL RECORD: [id number] ACCOUNT: [id number] LOCATION:[facility]1113 : 33 ADMISSION DATE: 08/10/18 REHABILITATION HISTORY AND PHYSICAL EXAMINATION POST ADMISSION PHYSICIAN EXAMINATION DATE OF ADMISSION: 08/10/2018. ADMITTING DIAGNOSIS: Right hip fracture status post unilateral hip replacement. HISTORY OF PRESENT ILLNESS: The patient is an 83-year-old female patient who was admitted to the inpatient rehab after sustaining a fall earlier in the day prior to admission. She was found on the floor without apparent deformity and tenderness to her right femur. She was alert and awake, but had moderate distress secondary to pain when she was admitted. She has chronic atrial fib for which she is on Coumadin anticoagulation. Her INR was 1.78. Her Coumadin had to be placed on hold. Her heart rate was in the 70s-80s with no obvious medications to keep it there, although she did have AFib. The patient underwent surgery given her weight. This made the fixation extremely difficult; however, excellent anatomic congregational of the proximal subtrochanteric femur fracture was achieved using a gamma nail. After obtaining the appropriate preoperative orthopedic surgery consult, she was taken in and anesthetized, she was transferred to a fracture table and had surgery there. Fluoroscopy was used during this procedure. After having the surgery done, the patient has done well, although she is having a lot of problems tolerating therapy because of pain control. She is not progressing as well as expected. The patient has been placed on Eliquis because of her AFib. The patient has required ongoing medical management and physician oversight secondary to her self-care deficits, her increasing needs for help with ADLs and other requirements. The patient has continued to need 24-hour care from RN. She is actually receiving DVT prophylaxis and AFib prophylaxis. Skin care management is seeing her. Lab monitoring, blood pressure management bowel and bladder management and going through this program are all barriers to her discharge at this time. She is currently max assist for ADLs and total assist with ambulation. She is requiring a rolling walker and she is toe-touch weightbearing on right lower extremity. The patient will require intensive therapy in order to get her back home at her prior level of functioning. COMORBIDITIES: In this patient include hypertension, acute nicotine withdrawal, moderate aortic insufficiency, arthritis, chronic neck pain, chronic left shoulder pain, coronary artery disease, and status post gamma nail. PAST MEDICAL HISTORY: Significant for morbid obesity and history of heart catheterization. PAST SURGICAL HISTORY: Includes a gamma nail to her right hip, hysterectomy, and heart catheterization. ALLERGIES: No known drug allergies. CURRENT MEDICATIONS: Include polyethylene glycol 17 grams in 8 ounces of water daily. She is on Protonix 40 mg daily, lisinopril 10 mg daily, [place] 10/325 one tab q.4 hours p.r.n., Colace 100 mg b.i.d., Flexeril 10 mg q.6 hours p.r.n., and Eliquis 2.5 mg b.i.d. HISTORY AND PHYSICAL [id number] FRANCISCO HEARN HABITS: Does have a history of tobacco use. FAMILY HISTORY: Noncontributory. SOCIAL HISTORY: The patient hopes to return back home and get back to her prior level of functioning. REVIEW OF SYSTEMS: GENERAL: Does complain of weakness and fatigue. HEENT: She denies cold, cough, or congestion. CARDIOVASCULAR: Denies chest pain. PHYSICAL EXAMINATION: VITAL SIGNS: Stable, afebrile. Generally a morbidly obese female in no acute distress upon exam. CHEST: Normocephalic and atraumatic. Mucosa moist. NECK: Supple, no lymphadenopathy. LUNGS: Clear in upper [place]. HEART: Irregular rate and rhythm. ABDOMEN: Benign. EXTREMITIES: No clubbing, cyanosis or edema. NEUROLOGIC: She has noted weakness, but also noted pain with any type of passive movement of this patient in any way, shape or form. LABORATORY DATA: White count is 8.7, H&H of 10.9 and 32.3, and platelet count was noted to be 254. Her sodium is 134, potassium 4.4, BUN and creatinine of 14 and 0.7, and blood sugar was noted to be 138. Her admit UA did show 1+ leukocyte esterase and 5-10 white blood cells and moderate bacteria. ASSESSMENT: This is an 83-year-old female patient admitted to the rehab with a working diagnosis of status post gamma nail for a right hip fracture. The patient has potential to make improvement. We instituted the following multidisciplinary therapies including, but not limited to physical, occupational, respiratory, speech, nutritional services, prosthetics and orthotics. Given her complex medical condition and risks for more complications, rehabilitation services cannot be not provide a low level of care such as skilled nurse facility. PLAN: 1. Admit to [facility] for intensive inpatient therapy to include the following disciplines: A. Physical therapy to improve gait, all transfer skills and bed mobility to a modified independent level. B. Occupational therapy to improve activities of daily living to a modified independent level. C. Case management to assist with discharge planning and placement options. D. Nutrition to assist with nutritional needs. E. Rehabilitation nursing to assist in monitoring the patient's underlying medical conditions and to assist with any type of bowel or bladder management. 2. The patient's current medication and medical care will be continued. 3. The patient will be placed on standard fall precautions. 4. The patient's estimated length of stay is approximately 7-10 days. 5. I will discuss the patient during care team staff meeting this week. TRANSINT:[id number] Voice Confirmation ID: [id number] DOCUMENT ID: [id number] HISTORY AND PHYSICAL [id number] FRANCISCO HEARN notes whether there has been none or any medical/functional change since admission: - No chance since preadmission screen. RAIMUNDO attests patient continues to be appropriate for IRF: - Continues to be appropriate. ERNIE GABRIEL MD at 1310 CC: [id number] DICTATION DATE: 08/11/18 1258 TEST AND TURN UP TECHNICIAN: 08/11/18 1316 ADM IN [facility] [address] [place] [address]
--- NOTE | 2018-08-20 13:26 | NUR ---
UP IN WC. NO C/O PAIN. FAMILY WAS HERE FOR TEAM CONFERENCE.
--- NOTE | 2018-08-20 15:20 | NUR ---
CARE TEAM MEETING: PATIENT HAS BEEN ACCEPTED TO [facility] AND WILL DISCHARGE THERE IN AM 08/21/18. FAMILY HAS BEEN NOTIFIED
--- NOTE | 2018-08-20 16:58 | NUR ---
RESTING QUIETLY IN BED. NO DISTRESS NOTED. NO CHANGE IN ASSESSMENT. CL IN REACH.
[2018-08-20 19:00] VITALS: BP 126/46
--- NOTE | 2018-08-20 19:50 | NUR ---
GREETED PATIENT AND INTRODUCED MYSELF HER NURSE FOR THE EVENING. PATIENT IS LAYING IN BED IN SUPINE POSITION. DENIES ANY NEEDS AT THIS TIME. CALL LIGHT IN REACH.
--- NOTE | 2018-08-20 20:40 | NUR ---
PATIENT CLEANED OF INCONTINET URINE. COMPLETE LINEN CHANGE. PT. REPOSITIONED FOR COMFORT. CALL LIGHT IN REACH.
--- NOTE | 2018-08-21 03:19 | NUR ---
PATIENT AWAKE AND ASSISTED ONTO BEDPAN. PATIENT REPOSTIONED FOR COMFORT. CALL LIGHT IN REACH.
[2018-08-21 08:00] VITALS: BP 134/48
--- NOTE | 2018-08-21 08:06 | NUR ---
PT RESTING IN BED WITH EYES OPEN CALL LIGHT IN REACH NO PROBLEMS WILL MONITER
[2018-08-21] MEDS ORDERED: CLEOCIN HCL300 MG PO (08:52)
[2018-08-21] MEDS ORDERED: DURAGESIC1 PATCH .7 TRANSDERM (08:53)
[2018-08-21] MEDS ORDERED: NORCO-10 PO (08:53)
--- NOTE | 2018-08-21 09:56 | NUR ---
PATIENT DISCHARGING TO [facility] VIA [facility]. NO HOME HEALTH OR DME NEEDED AT THIS TIME. AN APPOINTMENT WITH DR. MENG WILL BE MADE AT TIME OF DISCHARGE FROM FACILITY. DR. DOWNS 09/03/18 @ 1:45. PATIENT CHOICE FORM AND [facility] FORMS SIGNED, COPY GIVEN TO FAMILY AND FILED IN CHART.DISHCARGE INSTRUCTIONS WITH [facility] DATA FAXED TO PCP, SNF AND REVIEWED WITH PATIENT AND SON.
--- NOTE | 2018-08-21 12:00 | NUR ---
PT DISCHARGED TO [facility] PAPER WORK SENT WITH ASSISTANT PROFESSOR OF SPANISH REPORT CALLED PT LEFT VIA WHEELCHAIR TOLERATED WELL
== END 2018-08-21 14:11 | DRG 560 ==
LOC: D.REHAB 17:47
PROVIDERS: ADMIT Emergency Medicine; ATTEND Emergency Medicine
DX: S72.091D Other fracture of head and neck of right femur, subsequent encounter for closed fracture with routine healing (principal); F17.203 Nicotine dependence unspecified, with withdrawal; W19.XXXD Unspecified fall, subsequent encounter; I10 Essential (primary) hypertension; I35.1 Nonrheumatic aortic (valve) insufficiency; G89.29 Other chronic pain; I25.10 Atherosclerotic heart disease of native coronary artery without angina pectoris; I48.91 Unspecified atrial fibrillation; M19.90 Unspecified osteoarthritis, unspecified site